=== PATIENT | male | born 1965 | race Native Hawaiian/Other Pacific Islander ===

== ENCOUNTER 2018-09-25 15:27 | Outpatient (CLI) | payer OTHER ==
--- NOTE | 2018-09-25 18:45 | MRI ---
MRI LUMBAR SPINE NONCONTRAST: DATE: 09/25/18 HISTORY: 53-year-old male with right lumbar radiculopathy and lumbar spinal stenosis. COMPARISON: 04/12/05. FINDINGS: There is a transition level at the lumbosacral junction. For the purposes of this report, that level will be designated as a partially sacralized L5. Vertebral body heights are maintained. No major spon dylolisthesis. No central spinal canal stenosis at any level. Conus medullaris terminates at T12-L1. The cauda equina is arranged in a symmetrical, normal distribution throughout the thecal sac. At L4-5, there is disc desiccation and mild disc space narrowing. There is a mild diffuse disc bulge at that level, which contacts the right L5 nerve root at the lateral recess. 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 There is also a superimposed small foc al central disc protrusion at L4-5 which protrudes into the anterior epidural space, but does not ind ent the thecal sac. Bone marrow signal is normal. There is mild to moderate right neural foraminal st enosis at L4-5, questionably to a slightly greater degree than in 2005. Otherwise, there is no signif icant interval change since the prior study overall. No significant neural foraminal stenosis at any other level. Degenerative facet changes are mild to moderate at L3-4, L4-5, and L5-S1. IMPRESSION: 1. Mild lumbar spondylosis consisting of mild and moderate facet osteoarthrosis at the last three le vels, and mild degenerative disc disease at L4-5. 2. Mild disc bulge abuts the right L5 nerve root at the L4-5 right lateral recess. 3. 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 4. Incidental finding of mild to moderate right neural foraminal stenosis at L4-5. 5. Otherwise, no significant interval change overall since 04/12/05. 6. No other levels of neuroforaminal stenosis, and no central spinal canal stenosis at any level. SUNDAR Tatum POS: [facility]
== END 2018-09-25 15:28 | disposition home or self-care (01) ==
LOC: MRI 15:27
PROVIDERS: ATTEND Physical Medicine & Rehabilitation
DX: M54.5 Low back pain (principal); M48.061 Spinal stenosis, lumbar region without neurogenic claudication; M48.07 Spinal stenosis, lumbosacral region; M79.606 Pain in leg, unspecified; M47.816 Spondylosis without myelopathy or radiculopathy, lumbar region; M51.36 Other intervertebral disc degeneration, lumbar region; M51.86 Other intervertebral disc disorders, lumbar region
CPT/HCPCS: 72148

== ENCOUNTER 2018-11-20 07:44 | Outpatient (CLI) | payer OTHER ==
--- NOTE | 2018-11-20 09:03 | CT ---
CONTRAST ENHANCED CT IMAGES OF CHEST: Date: 11/20/18 HISTORY: Chest wall pain. FINDINGS: Contrast enhanced CT of chest is performed. Coronal reconstructed images performed. Images demonstrate no evidence of lung parenchymal lesions. No evidence of mediastinal, axillary, or hilar lymphadenopathy seen. There are nondisplaced left non-healed fractures in the left 5th and 6th ribs. Numerous hypodense areas seen in the liver compatible with hepatic cysts. Gallbladder and pancreas are unremarkable. IMPRESSION: Non-healed left rib fractures. POS: [facility]
== END 2018-11-20 07:45 | disposition home or self-care (01) ==
LOC: CT 07:44
PROVIDERS: ATTEND Family Medicine
DX: R07.89 Other chest pain (principal); S22.42XG Multiple fractures of ribs, left side, subsequent encounter for fracture with delayed healing
CPT/HCPCS: 71260

== ENCOUNTER 2019-07-20 17:45 | Emergency (ER) | payer OTHER ==
[2019-07-20] MEDS ORDERED: HYDROcodone/Acetaminophen 10/325 mg Tablet ONE (18:37)
--- NOTE | 2019-07-20 19:30 | ULT ---
VENOUS DOPPLER ULTRASOUND OF THE RIGHT LOWER EXTREMITY: HISTORY: Right lower extremity pain. TECHNIQUE: Howard-scale ultrasound with color-flow and spectral Doppler imaging of the deep venous system of the r ight lower extremity is performed. FINDINGS: There is good flow, compression and augmentation noted in the common femoral, femoral, deep femoral, popliteal, posterior tibial and greater saphenous veins. IMPRESSION: No evidence of deep venous thrombosis in the right lower extremity. POS: [facility]
== END 2019-07-20 20:35 | disposition home or self-care (01) ==
LOC: ERS 17:45
DX: M79.661 Pain in right lower leg (principal); I25.10 Atherosclerotic heart disease of native coronary artery without angina pectoris; I25.2 Old myocardial infarction; J45.909 Unspecified asthma, uncomplicated; F32.9 Major depressive disorder, single episode, unspecified; Z87.891 Personal history of nicotine dependence; Z79.82 Long term (current) use of aspirin; Z79.899 Other long term (current) drug therapy

== ENCOUNTER 2020-08-04 12:32 | Outpatient (CLI) | payer OTHER ==
--- NOTE | 2020-08-04 14:29 | MRI ---
MRI Lumbar Spine Noncontrast: HISTORY: Low back pain with associated bilateral leg weakness. Lumbar radiculopathy. History of prior steroid injections. COMPARISON: 09/25/2018 FINDINGS: The visualized retroperitoneal structures demonstrate a normal appearance. Conus medullaris is normal in morphology and terminates at the T12-L1 level. Paravertebral soft tissues have a normal appearance. There is nonspecific mild heterogeneity of the bone marrow. There is a low signal intensity subcentim eter structure seen within the left aspect of the L4 vertebral body likely related to a bone island which was seen on CT exam in 2013. Mild endplate degenerative changes are seen at the L4-5 level. The re is transitional vertebra at the lumbosacral junction. L1-2: There is no disc bulge or disc herniation. Central spinal canal and neural foramina are patent. L2-3: There is no disc bulge or disc herniation. Central spinal canal and neural foramina are patent. L3-4: Mild loss of intervertebral disc height. Minimal disc osteophyte complex is present. Facet hype rtrophic changes are noted. Central spinal canal is patent. Minimal right-sided neural foraminal narrowing is present, but the left neural foramen is patent. L4-5: Again noted is a mild broad-based disc osteophyte complex with small central disc protrusion. T here are moderate facet hypertrophic changes present at this level. The disc bulge again encroaches on the traversing right L5 nerve root. There is evidence of a right-sided conjoined nerve root at thi s level. Moderate right-sided neural foraminal narrowing is present which does appear slightly progressed from prior study. Left neural foramen is patent. L5-S1: There is no disc bulge or disc herniation. Central spinal canal and neural foramina are patent . Facet degenerative changes are present at this level. IMPRESSION: 1. Disc degenerative changes again primarily involving the lower lumbar spine and greatest at the L4- 5 level where there is moderate to severe right-sided neural foraminal narrowing, and the degree of neural foraminal narrowing at this level has progressed from the prior exam. There is prominent facet hypertrophic changes on the right at this level. Again noted is encroachment on the traversing right L5 nerve root. 2. 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
== END 2020-08-04 12:33 | disposition home or self-care (01) ==
LOC: TBSIIMAG 12:32
PROVIDERS: ATTEND Neurological Surgery
DX: M51.16 Intervertebral disc disorders with radiculopathy, lumbar region (principal); M48.061 Spinal stenosis, lumbar region without neurogenic claudication; M89.38 Hypertrophy of bone, other site
CPT/HCPCS: 72148

== ENCOUNTER → 2023-05-01 | Day surgery (SDC) | payer BC ==
[2023-04-26 14:21] VITALS: BMI 36.6
[~2023-05-01] MED LIST: Adenosine 6 MG/2 ML VIAL ONE; Heparin 10,000 UNITS/ 10 ML VIAL ONE; Iopamidol 370 76% 100 ML VIAL ONE; Lidocaine 1% (PF) 30 ML VIAL ONE; Midazolam HCl 2 mg/2 ml Vial ONE; Nitroglycerin 50 MG/250 ML BOT 250 ML ONE; Verapamil 5 MG/2 ML VIAL ONE; fentaNYL 50 mcg/mL 1 mL Vial ONE
[2023-05-01 07:09] LABS: #Basophils 0.1 thou/uL (0.0-0.2); #Eosinphils 0.4 thou/uL (0.0-0.7); #Monocytes 0.6 thou/uL (0.11-0.59); %Basophils 1.1 % (0.0-1.0); %Eosinophils 5.1 % (0.0-10.0); %Lymphocytes 36.2 % (21.0-51.0); %Monocytes 7.9 % (0.0-10.0); %Neutrophils 49.2 % (42.0-75.0); Hematocrit 42.8 % (42.0-52.0); Hemoglobin 14.3 g/dL (14.0-18.0); Mean Corpuscular HGB CONC 33.4 g/dL (32.0-36.0); Mean Corpuscular Hemoglobin 31.2 pg (27.0-31.0); Mean Corpuscular Volume 93.2 fl (78.0-98.0); Mean Platelet Volume 9.2 fL (7.4-10.4); Platelet Count 294 10x3/uL (130-400); RBC Distribution Width 12.1 % (11.5-14.5); Red Blood Cell (RBC) Count 4.59 mill/uL (4.70-6.10); White Blood Cell (WBC) Count 8.1 10x3/uL (4.8-10.8)
[2023-05-01 07:38] LABS: PTT 28.8 sec (22.9-36.1)
[2023-05-01 07:43] LABS: ALT (SGPT) 29 U/L (8-55); AST (SGOT) 16 U/L (5-34); Albumin 4.2 g/dL (3.5-5.0); Alkaline Phosphatase 102 U/L (40-110); Anion Gap 13 mmol/L (10-20); BUN (Urea Nitrogen) 12 mg/dL (8.4-25.7); Bilirubin, Direct 0.3 mg/dL (0.1-0.3); Bilirubin, Total 0.8 mg/dL (0.2-1.2); Calc. Creatinine Clearance 142 mL/min (70-130); Calcium 9.2 mg/dL (7.8-10.44); Carbon Dioxide 25 mmol/L (22-29); Cardiac Risk 3.6 (Less than 4.5); Chloride 109 mmol/L (98-107); Cholesterol 129 mg/dl (< 200 Desired); Estimated GFR 83; Globulin 2.6 g/dL (2.4-3.5); Glucose 102 mg/dL (70-105); HDL Cholesterol 36 mg/dL (>60 Neg Risk); LDL Cholesterol, Calculated 75 mg/dL; Potassium 4.5 mmol/L (3.5-5.1); Protein, Total 6.8 g/dL (6.0-8.3); Sodium 142 mmol/L (136-145); Triglycerides 89 mg/dL (Less than 150)
== END ==
LOC: CCL 05:52
PROVIDERS: ATTEND Internal Medicine Cardiovascular Disease
DX: I25.10 Atherosclerotic heart disease of native coronary artery without angina pectoris (principal); R94.39 Abnormal result of other cardiovascular function study; E78.00 Pure hypercholesterolemia, unspecified; Z79.82 Long term (current) use of aspirin; Z79.899 Other long term (current) drug therapy; Z79.02 Long term (current) use of antithrombotics/antiplatelets
CPT/HCPCS: 71045; 80053; 80061; 80076; 85025; 85610; 85730; 93005; 93010; 93458; 99152; C1769; C1894; J0153; J1644; J2001; J2250; J3010; Q9967

== ENCOUNTER 2025-03-26 07:50 | Outpatient (CLI) | payer BC | END 2025-03-26 07:51 | disposition home or self-care (01) | LOC: BICRAD 07:50 | PROVIDERS: ATTEND Physician Assistant | DX: M48.062 Spinal stenosis, lumbar region with neurogenic claudication (principal); M54.16 Radiculopathy, lumbar region | CPT/HCPCS: 72100 ==

== ENCOUNTER 2025-07-05 07:58 | Outpatient (CLI) | payer BC | END 2025-07-05 07:59 | disposition home or self-care (01) | LOC: BICRAD 07:58 | PROVIDERS: ATTEND Neurological Surgery | DX: M54.16 Radiculopathy, lumbar region (principal); R93.7 Abnormal findings on diagnostic imaging of other parts of musculoskeletal system | CPT/HCPCS: 72100 ==